=== PATIENT | male | born 1970 | race Caucasian/White ===

== ENCOUNTER → 2024-07-29 06:05 | Day surgery (SDC) | payer BC, SELFPAY ==
[2024-07-11 12:36] VITALS: BMI 30.1
--- NOTE | 2024-07-11 12:53 | HPS.HSE ---
Family Physician
-
Family Physician: Arcadio Larson
Chief Complaint
-
Elevated coronary artery calcium score. Family history of coronary artery disease.
History of Present Illness
The patient is a 54 year old male who presents today with a strong family history of coronary artery disease. He reports his brother suffered a non-fatal myocardial infarction at 51 years old which required a percutaneous revascularization
with PCI and 2 stents. Given his strong family history, he underwent a coronary artery calcium score CT. His score was 1701.4, which was considered well above the 90 percentile for his age and sex matched patients. He currently takes a baby Aspirin
and Rosuvastatin daily. He reports any recent abnormal symptoms. He will undergo a left cardiac catheterization for further assessment. He denies any current complaints today such as chest pain, shortness of breath, palpitations, nausea, vomiting,
diarrhea, lightheadedness, dizziness, cough, sore throat, or fever.
Medical History
Past Medical History
Past Medical History: Reports Other
Additional Past Medical History:
1. Elevated coronary artery calcium score.
2. Family history of coronary artery disease.
3. White coat hypertension.
4. Hyperlipidemia.
5. GERD.
6. Anxiety.
7. Insomnia.
8. Obesity, BMI 30.1.
Past Surgical History: Reports Other
Additional Past Surgical History:
1. Colonoscopy.
2. Endoscopy.
Social History
Tobacco: Non-smoker
Alcohol: Occasional (He reports wine drinking on the weekends. )
Personal:
Living: Other (He lives with his in a 3 story home. )
Family History
Family History: Early CAD
Allergies / Home Medications
Allergy/Medication List:
Home medications:
1. Alprazolam 0.25 mg p.o. daily as needed.
2. Aspirin 81 mg p.o. daily.
3. Cholecalciferol 25 mcg p.o. daily.
4. Lysine 500 mg p.o. daily.
5. Magnesium 200 mg p.o. daily.
6. Pantoprazole 40 mg p.o. at bedtime.
7. Rosuvastatin 20 mg p.o. daily.
8. Vitamin K2 200 mcg p.o. daily.
9. Zolpidem 5 mg p.o. at bedtime.
10. Melatonin 10 mg p.o. at bedtime.
Allergies: Seasonal. No known drug allergies.
Review of Systems
-
A 12 point ROS was completed and negative except as noted: Yes
Physical Exam
Vital Signs
Blood pressure 157/96. Heart rate 67. Respirations 18. Pulse ox 100% on room air.
Height 6 feet, 3 inches. Weight 109.4 kg. BMI 30.1.
Physical Exam
General: Well Developed, Well Nourished and No Apparent Distress
HEENT: NormoCephalic, Moist mucous membranes, Atraumatic and PERRLA
Respiratory: Clear
Cardiac: Regular Rhythm
GI: Soft, Non Tender, Non Distended and Other (Obese. )
Musculoskeletal: Normal Gait & Station
Skin: Warm and Dry
Neuro: AO x 3 and Nonfocal/grossly intact
Laboratory Results
-
DIAGNOSTIC STUDIES as of 07/11/2024: White blood cell count 5.8. Hemoglobin 15.0. Platelet count 228,000. Sodium 138. Potassium 4.3. BUN 14. Creatinine 1.1. Glucose 91. Calcium 9.8. AST 32. ALT 34. Albumin 4.8.
EKG 07/11/2024: Normal sinus rhythm with sinus arrhythmia.
Impression/Plan
-
IMPRESSION/PLAN:
1. Elevated coronary artery calcium score and family history of coronary artery disease: The patient is in need of a left cardiac catheterization with Dr. Landry Zamora on 07/29/2024. The benefits and risks of the procedure have been explained to
the patient. The patient understands these risks and wishes to proceed. He is aware to continue his baby Aspirin daily up to and including the morning of his procedure.
[2024-07-11 12:56] LABS: % Basophils 0.9 % (0-2); % Eosinophils 1.6 % (0-6); % Immature Granulocytes 0.2 % (0-0.5); % Lymphocytes 30.6 % (20.5-51.1); % Monocytes 10.2 % (1.7-9.3); % Neutrophils 56.5 % (42.2-75.2); Absolute Basophils 0.1 10^3/uL (0-0.2); Absolute Eosinophils 0.1 10^3/uL (0-0.7); Absolute Lymphocytes 1.8 10^3/uL (1.2-3.4); Absolute Monocytes 0.6 10^3/uL (0.1-0.6); Absolute Neutrophils 3.3 10^3/uL (1.4-6.5); Hematocrit 43.7 % (39.0-52.0); Mean Corp Hgb Conc. 34.3 g/dL (33.0-37.0); Mean Corpuscular Hgb 31.5 pg (27.0-31.0); Mean Corpuscular Volume 91.8 fL (80.0-94.0); Mean Platelet Volume 10.4 fL (7.4-10.4); Nucleated Red Blood Cells % 0 % (-); Platelet Count 228 10^3/uL (130-400); Red Blood Cell Count 4.76 10^6/uL (4.70-6.10); Red Cell Dist. Width 12.7 % (11.5-14.5); White Blood Cell Count 5.8 10^3/uL (4.8-10.8)
[2024-07-11 13:22] LABS: ALT (SGPT) 34 U/L (0-50); AST (SGOT) 32 U/L (17-59); Albumin 4.8 g/dl (3.5-5.0); Alkaline Phosphatase 55 U/L (38-126); Blood Urea Nitrogen 14 mg/dl (9-20); Calcium 9.8 mg/dl (8.4-10.2); Carbon Dioxide 28 mmol/L (22-30); Chloride 101 mmol/L (98-107); Estimated Creatinine Clearance 92 ml/min; Glucose 91 mg/dl (70-99); Potassium 4.3 mmol/L (3.5-5.1); Sodium 138 mmol/L (135-145); Total Protein 7.4 g/dl (6.3-8.2); eGFR > 60.00
[2024-07-29] VITALS (15 sets, daily range): BP systolic 124–176; BP diastolic 79–100; BMI 29.1
[2024-07-29] MEDS: NSS 317 ML IV (07:17)
--- NOTE | 2024-07-29 08:53 | ITS.CL.PN ---
Art Supervisor - Procedure Note
Procedure
Procedure Note:
CARDIAC CATHETERIZATION REPORT
Date of Procedure: 07/29/2024
Referring: Dr. Montez Hoyt MD
Indication: severely elevated coronary artery calcium score, early family history of coronary artery disease
PROCEDURE(S)
1. left heart catheterization
2. coronary angiography
3. moderate sedation
4. ultrasound guided vascular access
ACCESS: 6F right radial artery (closure: radial band)
CATHETERS
1. 6F JR4
2. 6F JL3.5
Moderate Sedation: 15 minutes of moderate sedation was utilized. An independent medical practitioners was present to assist with and help manage the patient's level of consciousness and physiologic status.
Ultrasound Guided Vascular Access (right radial artery): Ultrasound was utilized for vascular access. The vessel was visualized under ultrasound and noted to be patent. An image of the vessel was stored permanently in the patient's medical record.
Under direct ultrasound guidance, vascular access was obtained using a modified Seldinger technique and a 6 [place] sheath was placed.
HEMODYNAMIC DATA
LV 131/6 (EDP 11) mmHg
AO 138/84 (mean 111) mmHg
CORONARY ANGIOGRAPHY
Dominance: Right
LM: large with mild disease
LAD: Large vessel giving rise to a moderate caliber D1 and small D2. There is an ostial 70% stenosis, mild to moderate disease throughout the proximal to mid vessel, and a 100% occlusion in the mid-LAD just after D2. The mid-distal LAD beyond the
JOB SUPERINTENDENT is supplied by R-L and L-L collaterals.
LCx: Large vessel giving rise to a small OM1, moderate caliber OM 2, and very large OM 3. There is moderate disease in the proximal portion of the OM2. There is a 60% stenosis in the mid LCx before the takeoff of the very large OM 3. There is
otherwise mild disease.
RCA: Large vessel giving rise to a moderate caliber RPDA and several small RPL branches. The mid vessel has a long area of moderate stenosis up to 60%.
RADIATION: dose 426 mGy; DAP 26.4 Gy*cm2; fluoroscopy time 2.5 min
CONCLUSIONS
1. Three-vessel coronary artery disease in a right dominant system as described.
2. Normal LV filling pressure and no aortic stenosis on hemodynamic pullback.
RECOMMENDATIONS
1. expectant management after cardiac catheterization via right radial approach
2. echocardiogram
3. Outpatient consultation with CT surgery to consider coronary artery bypass grafting to the RPDA, large OM, and LAD (possibly with touchdowns both before and after the JOB SUPERINTENDENT). Percutaneous revascularization is technically feasible but would be
challenging and likely inferior to surgical revascularization, particularly given the patient's young age. Given the patient's lack of symptoms and high activity level, medical management would also be a reasonable option if LVEF is normal.
Copy to: Dr. Montez Hoyt MD (conciliation court judge); Dr. Arcadio Larson MD (PCP)
Signed: Landry Zamora MD, PhD
== END | disposition home or self-care (01) ==
LOC: CATH 06:05
PROVIDERS: ATTENDING PHYSICIAN Student in an Organized Health Care Education/Training Program; CONSULT PHYSICIAN Thoracic Surgery (Cardiothoracic Vascular Surgery); FAMILY PHYSICIAN Internal Medicine; OTHER PHYSICIAN Internal Medicine Cardiovascular Disease
DX: I25.10 Atherosclerotic heart disease of native coronary artery without angina pectoris (principal); R93.1 Abnormal findings on diagnostic imaging of heart and coronary circulation; I10 Essential (primary) hypertension; E78.5 Hyperlipidemia, unspecified; K21.9 Gastro-esophageal reflux disease without esophagitis; F41.9 Anxiety disorder, unspecified; Z82.49 Family history of ischemic heart disease and other diseases of the circulatory system; Z79.82 Long term (current) use of aspirin
CPT/HCPCS: 99152; C1894; 36415; 76937; 80053; 85025; 93005; 93458; Q9967

== ENCOUNTER → 2024-08-10 09:06 | Outpatient (REF) | payer BC, SELFPAY | LOC: HWRCS 09:06 | PROVIDERS: ATTENDING PHYSICIAN Student in an Organized Health Care Education/Training Program; FAMILY PHYSICIAN Internal Medicine | DX: I25.10 Atherosclerotic heart disease of native coronary artery without angina pectoris (principal) | CPT/HCPCS: 93306 ==